=== PATIENT | female | born 1975 | race Caucasian/White ===

== ENCOUNTER 2021-08-07 10:03 | Emergency (ER) | payer OTHER ==
[~2021-08-07] VITALS: Ht 167.6 cm; Wt 63.5 kg
[2021-08-07 10:10] VITALS: BP 121/69
--- NOTE | 2021-08-07 10:10 | NUR ---
SENT TO ER BED 11. BIBSELF C/O FLANK PAIN, L MORE THAN R. ALSO C/O URINARY FREQUENCY X 4 DAYS. VITALS ARE WITHIN NORMAL LIMITS. BREATHING IS EVENA ND UNLABORED.
--- NOTE | 2021-08-07 10:36 | NUR ---
PT INDU, PT DID NOT WANT TO GIVE LABS AND STATED THAT SHE ONLY WANTED PAIN MEDICATION AND LEFT WITH PARTNER WIHTOUT BEING SEEN BY DR CAMERON.
== END 2021-08-07 10:41 | disposition left against medical advice (07) ==
LOC: ER 10:33
DX: Z53.21 Procedure and treatment not carried out due to patient leaving prior to being seen by health care provider (principal)